=== PATIENT | male | born 1975 | race Caucasian/White ===

== ENCOUNTER 2025-05-06 07:56 | Emergency (ER) | payer BC ==
[~2025-05-06] VITALS: Ht 170.2 cm; Wt 97.2 kg
[2025-05-06 07:57] VITALS: BP 137/79; PULSE 67; RESP 16; TEMP 98.4; O2SAT 99
--- NOTE | 2025-05-06 08:14 | Physician Documentation ---
History of Present Illness ~ Chief Complaint: Ear Pain Stated Complaint: EAR ISSUES Time Seen by MD: 08:13 OK to notify your PCP?: Yes Source: patient, RN/MD, RN notes reviewed Mode of Arrival: POV Exam Limitations: no limitations HPI Patient has been complaining of earaches no swimming but also has a history of h eadaches not feeling well. Has been going on for about a week. Tenderness right ear decreased hearing. Still has a mild headache. No fevers or chills no congestion no other complaints. No dizziness no vertigo symptoms. Patient tried some nasal medication as well as some ear drops and Q-tips Medication Reconciliation Allergies: Coded Allergies: gluten (Verified Allergy, Unknown, 05/06/25) Scheduled Cephalexin*Monohydrate* (Keflex*), 1 CAP PO Q8H Naproxen (Naproxen), 1 TAB PO Q12H Past Medical History Past Medical History: No Pertinent History Past Surgical History: no surgical history Smoking Status: Never smoker Alcohol Use: None Drug Use: none Review of Systems All Other Systems at this time: Reviewed and Negative Physical Exam Vital Signs: RN Vital Signs have been reviewed: Yes, Temperature: 98.4, Source: Oral, Heart Rate: 67, Respiratory Rate: 16, BP: 137/79, Pulse Oximetry: 99, Weight: 97.200 Oxygen Flow Rate: 0 Physical Exam General: The patient is well developed, well nourished, nontoxic appearing and is in no acute distress. Skin: [place], warm and dry with no rashes. HEENT: Head was normocephalic and atraumatic. Eyes - pupils equal, round, reactive to light and accommodation. Extraocular movements were intact. Conjunctivae were nonicteric. Ears - bilateral tympanic membranes were normal. Right tympanic membrane appears full but no erythema no loss of landmarks The mouth and oropharynx were clear with moist mucous membranes. There were no pharyngeal exudates or erythema. Neck: Supple and nontender. There was no jugular venous distention, Chest: Clear to auscultation bilaterally without wheezes, rales or rhonchi. Heart: Rate regular and rhythmic Abdomen: Soft, nontender and nondistended. Positive bowel sounds. Extremities: No cyanosis, clubbing or edema. The patient moves all extremities. Pulses were equal and symmetric. Progress Results/Orders Reviewed/noted all lab results: Yes Results/Orders Vital Signs 8/17/25 07:57 Temp 98.4 Pulse 67 Resp 16 B/P (MAP) 137/79 Pulse Ox 99 O2 Flow Rate 0 Re-Evaluation Re-Evaluation : Re-Evaluation: Improved Progress Patient was seen and examined. Patient is given reassurance. There was no significant erythema but there is fullness of the TM. Patient was given anti- inflammatories decongestants. If his ear becomes more painful or symptoms are not resolving in a couple of days he should start a trial of antibiotics. Medical Decision Making Additional info obtained from: old records Ear Diff. Dx: Considerations: Include: Abrasion, Cerumen impaction, Foreign body, Otitis externa, Barotrauma, Otitis media, Perforation, Referred pain- dental, Referred pain-pharyngitis, Referred pain-sinusitis, Referred pain-TMJ syn., Tympanic Membrane Injury, Other Departure Disposition: HOME / SELF CARE / HOMELESS Impression: Primary Impression: Otalgia of right ear Condition: Stable Discharge Instructions: Earache, Adult Referrals: NO PRIMARY CARE PROVIDER (PCP) Prescriptions Naproxen (Naproxen) 500 Mg Tablet 1 TAB PO Q12H, #20 TAB Prov: SHAKIRA FORTE MD 05/06/25 Cephalexin*Monohydrate* (Keflex*) 500 Mg Capsule 1 CAP PO Q8H for 10 Days, #30 CAP Prov: SHAKIRA FORTE MD 05/06/25 Education Educated: Patient Educated regarding: diagnosis, treatment, prognosis, need for follow up, other Signature Scribe Signature: ' Attestation: The note accurately reflects work and decisions made by me.Shakria Forte MD 05/06/25 08:14 SHAKIRA FORTE MD May 06, 2025 08:14
[2025-05-06] MEDS ORDERED: CEPH-585 PO (08:48)
[2025-05-06] MEDS ORDERED: NAPR-56 PO (08:48)
== END 2025-05-06 09:00 | disposition home or self-care (01) ==
LOC: ER 07:57
DX: H92.01 Otalgia, right ear (principal); R51.9 Headache, unspecified
CPT/HCPCS: 99283; Q0163

== ENCOUNTER 2025-05-31 11:27 | Outpatient (CLI) | payer BC ==
[~2025-05-31 11:27] MED LIST: NAPR-56 PO
[2025-05-31 11:49] LABS: MEAN PLATELET VOLUME 8.5 FL (7.4-10.4); RED CELL DISTRIBUTION WIDTH 13.5 % (11.5-14.5)
[2025-05-31 12:34] LABS: CHOL/HDL RATIO 4.5 (0.00-4.99); CREATININE 1.11 MG/DL (0.60-1.10); LDL CHOLESTEROL 135 MG/DL (50-100); TOTAL CARBON DIOXIDE 27.2 MMOL/L (24-32); eGFR 70 ML/MIN
== END 2025-05-31 23:59 | disposition home or self-care (01) ==
LOC: RAD 11:27
DX: Z13.220 Encounter for screening for lipoid disorders (principal); Z13.1 Encounter for screening for diabetes mellitus
CPT/HCPCS: 36415; 80053; 80061; 83036; 85025